=== PATIENT | male | born 1975 | race Caucasian/White ===

== ENCOUNTER 2016-06-12 08:49 | Emergency (ER) | payer SELFPAY ==
[2016-06-12] MEDS ORDERED: OXYCODONE-ACETAMINOPHEN 5-325 MG TABLET PO ONE (10:22)
[2016-06-12] MEDS ORDERED: ONDANSETRON 4 MG TAB.RAPDIS PO ONE (10:22)
[2016-06-12 10:49] LABS: ABSOLUTE BASOPHILS # (AUTO) 0.1 10^3/uL (0.0-0.2); ABSOLUTE EOSINOPHILS # (AUTO) 0.3 10^3/uL (0.0-0.6); ABSOLUTE LYMPHOCYTES (AUTO) 2.6 10^3/uL (0.5-4.7); ABSOLUTE MONOCYTES (AUTO) 0.6 10^3/uL (0.1-1.4); BASOPHILS % (AUTO) 0.6 % (0-2); HEMATOCRIT 46.3 % (37.9-51.0); HEMOGLOBIN 15.5 g/dL (13.5-17.0); HGB HCT DIFFERENCE 0.2; LYMPHOCYTES % (AUTO) 30.6 % (13-45); MEAN CORPUSCULAR HEMOGLOBIN 30.7 pg (27.0-33.4); MEAN CORPUSCULAR HGB CONC 33.6 g/dL (32.0-36.0); MEAN CORPUSCULAR VOLUME 92 fl (80-97); RED BLOOD COUNT 5.06 10^6/uL (4.35-5.55); RED CELL DISTRIBUTION WIDTH 12.9 % (11.5-14.0); SEGMENTED NEUTROPHILS % (AUTO) 58.8 % (42-78); WHITE BLOOD COUNT 8.4 10^3/uL (4.0-10.5)
[2016-06-12 11:09] LABS: ALANINE AMINOTRANSFERASE 50 U/L (21-72); ALBUMIN 4.8 g/dL (3.5-5.0); ALKALINE PHOSPHATASE 75 U/L (38-126); ANION GAP 10 (5-19); ASPARTATE AMINO TRANSFERASE 29 U/L (17-59); BILIRUBIN,TOTAL 0.6 mg/dL (0.2-1.3); BLOOD UREA NITROGEN 9 mg/dL (7-20); CALCIUM 9.9 mg/dL (8.4-10.2); CARBON DIOXIDE 30 mmol/L (22-30); CHLORIDE 103 mmol/L (98-107); CREATININE RESULT 1.01 mg/dL (0.52-1.25); GLUCOSE 89 mg/dL (75-110); POTASSIUM 4.7 mmol/L (3.6-5.0); SODIUM 143.1 mmol/L (137-145); TOTAL PROTEIN 7.7 g/dL (6.3-8.2)
--- NOTE | 2016-06-12 11:17 | ER Document Report ---
ED GI/ - General Chief Complaint: Possible Kidney Stone Stated Complaint: SIDE PAIN Notes: He shouldn't is a 40-year-old male presents emergency Department complaining of left flank pain. Patient states that it began he passed 2 kidney stones. Any states that Friday he started having left flank pain mostly in his lower back. Otherwise he denies any hematuria recently he had some over the weekend that since resolved. Otherwise denies any fevers or chills. Admits to nausea without vomiting. Last bowel movement was this morning and was normal. Denies any dysuria Otherwise no other significant past medical history. Past surgical history significant for cholecystectomy and appendectomy Social history: Occasional alcohol use. Denies any tobacco or drug use. Urologist is Dr. Leyva at [facility] TRAVEL OUTSIDE OF THE [place] IN LAST 30 DAYS: No - Related Data Allergies/Adverse Reactions: No Known Allergies Allergy (Verified 06/12/16 08:58) Past Medical History - General Information source: Patient - Social History Smoking Status: Never Smoker Chew tobacco use (# tins/day): No Frequency of alcohol use: Occasional Drug Abuse: None Family History: Reviewed & Not Pertinent Patient has suicidal ideation: No Patient has homicidal ideation: No - Past Medical History Cardiac Medical History: Reports: Hx Hypertension Neurological Medical History: Reports: Hx Cerebrovascular Accident Renal/ Medical History: Reports: Hx Kidney Stones - present and history of. Denies: Hx Peritoneal Dialysis GI Medical History: Denies: Hx Diverticulitis, Hx Gastritis, Hx Irritable Bowel Psychiatric Medical History: Reports: Hx Depression - recent seperation from spouse Past Surgical History: Reports: Hx Appendectomy, Hx Cholecystectomy - Immunizations Hx Diphtheria, Pertussis, Tetanus Vaccination: No Review of Systems - Review of Systems Constitutional: No symptoms reported EENT: No symptoms reported Cardiovascular: No symptoms reported Respiratory: No symptoms reported Gastrointestinal: No symptoms reported Genitourinary: See HPI Male Genitourinary: No symptoms reported Musculoskeletal: No symptoms reported Skin: No symptoms reported Hematologic/Lymphatic: No symptoms reported Neurological/Psychological: No symptoms reported Physical Exam - Vital signs Vitals: Temp Pulse Resp BP Pulse Ox 97.7 F 62 20 172/105 H 97 06/12/16 08:57 06/12/16 08:57 06/12/16 08:57 06/12/16 08:57 06/12/16 08:57 - Notes Notes: PHYSICAL EXAM GENERAL: Alert, interacts well. LUNGS: Clear to auscultation bilaterally, no wheezes, rales, or rhonchi. No respiratory distress. HEART: Regular rate and rhythm. No murmurs, gallops, or rubs. ABDOMEN: Soft, nondistended, nontender. No guarding, rebound, or rigidity.. Bowel sounds present in all 4 quadrants. BACK: Left CVA tenderness. EXTREMITIES: Moves all 4 extremities spontaneously. No edema, radial and dorsalis pedis pulses 2/4 bilaterally. No cyanosis. NEUROLOGICAL: Alert and oriented x3. Normal speech. PSYCH: Normal affect, normal mood. SKIN: Warm, dry, normal turgor. No rashes or lesions noted. Course - Re-evaluation Re-evalutation: 06/12/16 11:15 Patient is a 32-year-old male who is hemodynamically stable, no acute distress and afebrile. CBC within normal limits no evidence of leukocytosis. CMP does not reveal any acute renal failure. Urinalysis does not reveal any hematuria or UTI. CT limited for renal stone did not reveal any current stones. Patient is otherwise doing well. Discussed the symptoms of the CT scan and encouraged him to follow up with urology as scheduled. - Vital Signs Vital signs: Temp Pulse Resp BP Pulse Ox 97.7 F 62 20 172/105 H 97 06/12/16 08:57 06/12/16 08:57 06/12/16 08:57 06/12/16 08:57 06/12/16 08:57 - Laboratory Result Diagrams: 06/12/16 10:25 06/12/16 10:25 Laboratory results interpreted by me: 06/12/16 10:25 Urine Ascorbic Acid 40 H - Diagnostic Test Radiology reviewed: Image reviewed, Reports reviewed Discharge - Discharge Clinical Impression: Flank pain Condition: Good Disposition: HOME, SELF-CARE Instructions: Kidney Stone ([facility]) Additional Instructions: Follow-up with Dr. Cedrick Leyva at [place] is indicated in the next 6 months. Prescriptions: Hydrocodone/Acetaminophen [[place] 5-325 mg Tablet] 1 tab PO Q6HP PRN #10 tablet PRN Reason: Forms: Return to Work Referrals: MANDO ANTHONY MD [Primary Care Provider] - Follow up as needed
[2016-06-12 11:37] LABS: APPEARANCE,URINE CLEAR; BILIRUBIN,URINE NEGATIVE (NEGATIVE); GLUCOSE, URINE NEGATIVE (NEGATIVE); KETONES,URINE NEGATIVE (NEGATIVE); LEUKOCYTE ESTERASE,URINE NEGATIVE (NEGATIVE); NITRITE,URINE NEGATIVE (NEGATIVE); PROTEIN,URINE NEGATIVE (NEGATIVE); URINE SPECIFIC GRAVITY 1.013; UROBILINOGEN,URINE NEGATIVE mg/dL (<2.0)
[2016-06-12] MEDS ORDERED: KETOROLAC TROMETHAMINE 60 MG/2 ML SDV IM ONE (11:44)
[2016-06-12] MEDS ORDERED: KETOROLAC TROMETHAMINE INJ/PF 30 MG/1 ML SDV IV ONE (11:48)
[2016-06-12 12:23] VITALS: BP 158/92
== END 2016-06-12 12:13 | disposition home or self-care (01) ==
LOC: ER 08:49
DX: R10.9 Unspecified abdominal pain (principal); M54.5 Low back pain; Z87.442 Personal history of urinary calculi; R11.0 Nausea; I10 Essential (primary) hypertension; Z86.73 Personal history of transient ischemic attack (TIA), and cerebral infarction without residual deficits; Z90.49 Acquired absence of other specified parts of digestive tract
CPT/HCPCS: 99284; 96374; 36415; 85025; 80053; 81001; 76380; S0119; J1885

== ENCOUNTER 2016-08-07 23:01 | Emergency (ER) | payer SELFPAY ==
[2016-08-08] MEDS ORDERED: ACETAMINOPHEN 325 MG TABLET PO ONE (00:16)
[2016-08-08] MEDS ORDERED: ONDANSETRON 4 MG TAB.RAPDIS PO ONE (00:17)
--- NOTE | 2016-08-08 00:19 | ER Document Report ---
ED Medical Screen (RME) - General Stated Complaint: FLU LIKE SYMPTOMS Time seen by provider: 00:15 Notes: 40 year old male that comes to the ED for chief complaint of body aches, chills , mild cough. Exposed to daughter who tested positive for influenza. Denies sore throat, nausea vomiting, abdominal pain, shortness of breath, he states right now he has a mild headache and body aches. No influenza vaccine. TRAVEL OUTSIDE OF THE [place] IN LAST 30 DAYS: No - Related Data Allergies/Adverse Reactions: No Known Allergies Allergy (Verified 08/08/16 00:15) Past Medical History - Past Medical History Cardiac Medical History: Reports: Hx Hypertension Neurological Medical History: Reports: Hx Cerebrovascular Accident Renal/ Medical History: Reports: Hx Kidney Stones - present and history of. Denies: Hx Peritoneal Dialysis GI Medical History: Denies: Hx Diverticulitis, Hx Gastritis, Hx Irritable Bowel Psychiatric Medical History: Reports: Hx Depression - recent seperation from spouse Past Surgical History: Reports: Hx Appendectomy, Hx Cholecystectomy - Immunizations Hx Diphtheria, Pertussis, Tetanus Vaccination: No Physical Exam - Vital signs Vitals: Temp Pulse Resp BP Pulse Ox 98.4 F 66 16 162/104 H 97 08/07/16 23:16 08/07/16 23:16 08/07/16 23:16 08/07/16 23:16 08/07/16 23:16 - Respiratory Respiratory status: No respiratory distress Breath sounds: Normal. No: Decreased air movement, Productive cough, Rales, Rhonchi, Stridor, Wheezing Course - Vital Signs Vital signs: Temp Pulse Resp BP Pulse Ox 98.4 F 66 16 162/104 H 97 08/07/16 23:16 08/07/16 23:16 08/07/16 23:16 08/07/16 23:16 08/07/16 23:16
--- NOTE | 2016-08-08 05:11 | ER Document Report ---
ED Flu Like - General Chief Complaint: Flu Symptoms Stated Complaint: FLU LIKE SYMPTOMS Time seen by provider: 05:05 Notes: 40 year old male that comes to the ED for chief complaint of body aches, chills , mild cough. Exposed to daughter who tested positive for influenza. Denies sore throat, nausea vomiting, abdominal pain, shortness of breath, he states right now he has a mild headache and body aches. No influenza vaccine. TRAVEL OUTSIDE OF THE [place] IN LAST 30 DAYS: No - Related Data Allergies/Adverse Reactions: No Known Allergies Allergy (Verified 08/08/16 00:15) Past Medical History - General Information source: Patient - Social History Smoking Status: Never Smoker Chew tobacco use (# tins/day): No Frequency of alcohol use: None Drug Abuse: None Lives with: Family Family History: Reviewed & Not Pertinent Patient has suicidal ideation: No Patient has homicidal ideation: No - Past Medical History Cardiac Medical History: Reports: Hx Hypertension Neurological Medical History: Reports: Hx Cerebrovascular Accident Renal/ Medical History: Reports: Hx Kidney Stones - present and history of. Denies: Hx Peritoneal Dialysis GI Medical History: Denies: Hx Diverticulitis, Hx Gastritis, Hx Irritable Bowel Psychiatric Medical History: Reports: Hx Depression - recent seperation from spouse Past Surgical History: Reports: Hx Appendectomy, Hx Cholecystectomy - Immunizations Hx Diphtheria, Pertussis, Tetanus Vaccination: No Review of Systems - Review of Systems Constitutional: See HPI EENT: No symptoms reported Cardiovascular: No symptoms reported Respiratory: No symptoms reported Gastrointestinal: No symptoms reported Genitourinary: No symptoms reported Male Genitourinary: No symptoms reported Musculoskeletal: No symptoms reported Skin: No symptoms reported Hematologic/Lymphatic: No symptoms reported Neurological/Psychological: See HPI Physical Exam - Vital signs Vitals: Temp Pulse Resp BP Pulse Ox 98.4 F 66 16 162/104 H 97 08/07/16 23:16 08/07/16 23:16 08/07/16 23:16 08/07/16 23:16 08/07/16 23:16 Interpretation: Normal - General General appearance: Appears well, Alert In distress: None - HEENT Head: Normocephalic, Atraumatic Eyes: Normal Conjunctiva: Normal Extraocular movements intact: Yes Eyelashes: Normal Pupils: PERRL Ears: Normal External canal: Normal Tympanic membrane: Normal Sinus: Normal Nasal: Normal Mouth/Lips: Normal Mucous membranes: Normal Pharynx: Normal Neck: Normal - Respiratory Respiratory status: No respiratory distress Chest status: Nontender. No: Tender Breath sounds: Normal. No: Decreased air movement, Nonproductive cough, Productive cough, Wheezing Chest palpation: Normal - Cardiovascular Rhythm: Regular. No: Tachycardia Heart sounds: Normal auscultation, S1 appreciated, S2 appreciated Murmur: No - Abdominal Inspection: Normal Distension: No distension Bowel sounds: Normal Tenderness: Nontender. No: Tender, Guarding Organomegaly: No organomegaly - Back Back: Normal, Nontender - Extremities General upper extremity: Normal inspection, Nontender, Normal color, Normal ROM , Normal temperature General lower extremity: Normal inspection, Nontender, Normal color, Normal ROM , Normal temperature, Normal weight bearing. No: Keyon's sign - Neurological Neuro grossly intact: Yes Cognition: Normal Orientation: AAOx4 [place] Coma Scale Eye Opening: Spontaneous [place] Coma Scale Verbal: Oriented [place] Coma Scale Motor: Obeys Commands K[place] Coma Scale Total: 15 Speech: Normal Motor strength normal: LUE, RUE, LLE, RLE Sensory: Normal - Psychological Associated symptoms: Normal affect, Normal mood - Skin Skin Temperature: Warm Skin Moisture: Dry Skin Color: Normal Course - Re-evaluation Re-evalutation: On reevaluation patient still complaining of some body aches and chills, states headache is practically completely resolved. Patient is well-appearing, unremarkable exam including lung auscultation, abdominal examination, ENT examination. No nuchal rigidity, no lymphadenopathy, alert and well-appearing. Influenza is negative. Patient patient's symptoms I do suspect this is viral in nature, patient was given naproxen, work-release note, instructions for care at home, follow-up instructions, return precautions were discussed. Patient states understanding and agreement. - Vital Signs Vital signs: Temp Pulse Resp BP Pulse Ox 98.3 F 60 18 163/107 H 97 08/08/16 05:16 08/08/16 05:16 08/08/16 05:16 08/08/16 05:16 08/08/16 05:16 Discharge - Discharge Clinical Impression: Body aches, Chills Condition: Stable Disposition: HOME, SELF-CARE Additional Instructions: Influenza test is negative. Physical exam and symptoms are most consistent with a viral syndrome. This will resolve with time. Rest, take ibuprofen or the prescribed naproxen, and plenty of fluids. Follow-up with primary care. Return to emergency department for any concerning or worsening symptoms. Prescriptions: Naproxen 500 mg PO BID #20 tablet Forms: Return to Work, Elevated Blood Pressure Referrals: MANDO ANTHONY MD [Primary Care Provider] - Follow up as needed
[2016-08-08 05:18] VITALS: BP 163/107
== END 2016-08-08 05:16 | disposition home or self-care (01) ==
LOC: ER 23:01
DX: R68.83 Chills (without fever) (principal); R51 Headache; R52 Pain, unspecified; R05 Cough; Z20.828 Contact with and (suspected) exposure to other viral communicable diseases; I10 Essential (primary) hypertension; Z86.73 Personal history of transient ischemic attack (TIA), and cerebral infarction without residual deficits
CPT/HCPCS: 99283; 87804; S0119

== ENCOUNTER 2016-09-05 14:16 | Emergency (ER) | payer SELFPAY ==
[2016-09-05] MEDS ORDERED: ONDANSETRON 4 MG TAB.RAPDIS PO ONE (15:23)
[2016-09-05] MEDS ORDERED: OXYCODONE-ACETAMINOPHEN 5-325 MG TABLET PO ONE (15:23)
--- NOTE | 2016-09-05 15:24 | ER Document Report ---
ED Medical Screen (RME) - General Chief Complaint: Headache Stated Complaint: HEADACHE/CHEST PAIN/NUMBNESS IN LIPS Notes: This 41-year-old male patient comes emergency room complaining of severe headache. He reports he woke up about 2:30 AM with a headache all over. Sometime after that he had a nosebleed. He reports developing chest pain about 2:15 PM this afternoon. He also reports that the left lower lip feels numb. He takes lisinopril 20 mg daily for blood pressure. Brief exam shows him to be very tender to palpate the right posterior cervical and trapezius muscles. There is no pain or problems placing his chin on his chest. I have greeted and performed a rapid initial assessment of this patient. A comprehensive ED assessment and evaluation of the patient, analysis of test results and completion of the medical decision making process will be conducted by additional ED providers. TRAVEL OUTSIDE OF THE [place] IN LAST 30 DAYS: No - Related Data Allergies/Adverse Reactions: No Known Allergies Allergy (Verified 09/05/16 15:17) Past Medical History - Past Medical History Cardiac Medical History: Reports: Hx Hypertension Neurological Medical History: Reports: Hx Cerebrovascular Accident Renal/ Medical History: Reports: Hx Kidney Stones - present and history of. Denies: Hx Peritoneal Dialysis GI Medical History: Denies: Hx Diverticulitis, Hx Gastritis, Hx Irritable Bowel Psychiatric Medical History: Reports: Hx Depression - recent seperation from spouse Past Surgical History: Reports: Hx Appendectomy, Hx Cholecystectomy - Immunizations Hx Diphtheria, Pertussis, Tetanus Vaccination: No
[2016-09-05 16:04] LABS: ABSOLUTE EOSINOPHILS # (AUTO) 0.2 10^3/uL (0.0-0.6); ABSOLUTE LYMPHOCYTES (AUTO) 3.3 10^3/uL (0.5-4.7); ABSOLUTE MONOCYTES (AUTO) 0.7 10^3/uL (0.1-1.4); ABSOLUTE NEUT (AUTO) 6.8 10^3/uL (1.7-8.2); BASOPHILS % (AUTO) 0.4 % (0-2); EOSINOPHILS % (AUTO) 2.2 % (0-6); HEMATOCRIT 44.6 % (37.9-51.0); HEMOGLOBIN 15.5 g/dL (13.5-17.0); HGB HCT DIFFERENCE 1.9; LYMPHOCYTES % (AUTO) 29.7 % (13-45); MEAN CORPUSCULAR HEMOGLOBIN 31.1 pg (27.0-33.4); MEAN CORPUSCULAR HGB CONC 34.7 g/dL (32.0-36.0); MEAN CORPUSCULAR VOLUME 90 fl (80-97); MONOCYTES % (AUTO) 6.4 % (3-13); RED BLOOD COUNT 4.97 10^6/uL (4.35-5.55); RED CELL DISTRIBUTION WIDTH 13.3 % (11.5-14.0); SEGMENTED NEUTROPHILS % (AUTO) 61.3 % (42-78); WHITE BLOOD COUNT 11.1 10^3/uL (4.0-10.5)
[2016-09-05 16:09] LABS: PROTHROMBIN TIME 12.9 SEC (11.4-15.4)
[2016-09-05 16:34] LABS: ALANINE AMINOTRANSFERASE 62 U/L (21-72); ALBUMIN 4.8 g/dL (3.5-5.0); ALKALINE PHOSPHATASE 73 U/L (38-126); ANION GAP 13 (5-19); ASPARTATE AMINO TRANSFERASE 40 U/L (17-59); BILIRUBIN,DIRECT 0.4 mg/dL (0.0-0.4); BILIRUBIN,TOTAL 0.8 mg/dL (0.2-1.3); BLOOD UREA NITROGEN 15 mg/dL (7-20); CARBON DIOXIDE 30 mmol/L (22-30); CHLORIDE 102 mmol/L (98-107); CREATINE KINASE 269 U/L (55-170); CREATININE RESULT 1.08 mg/dL (0.52-1.25); GLUCOSE 114 mg/dL (75-110)
[2016-09-05] MEDS ORDERED: DIPHENHYDRAMINE HCL 50 MG/ML VIAL IV ONE (16:38)
[2016-09-05] MEDS ORDERED: LIDOCAINE 1% INJ-PF (10 MG/ML) 30 ML SDV ONE (16:41)
[2016-09-05 16:45] LABS: CREATINE KINASE MB 3.54 ng/mL (<4.55); TROPONIN I < 0.012 ng/mL
[2016-09-05] MEDS ORDERED: LABETALOL HCL INJ 20 MG/4 ML DISP.SYRIN IV ONE (17:11)
[2016-09-05] MEDS ORDERED: NICARDIPINE HCL RTU, ISO-OS 200 ML IV PRN (17:54)
[2016-09-05 18:27] LABS: GLUCOSE,CSF 62 mg/dL (40-70)
[2016-09-05 18:56] LABS: APPEARANCE ALL TUBES HAZY
[2016-09-05 18:57] LABS: RBC AVERAGE 696.5; RBC DILUENT USED NONE USED; RBC DILUTION FACTOR 1; RBC SIDE 1 698; RBC SIDE 2 695; TOTAL RBC SQUARES COUNTED 25
[2016-09-05 18:58] LABS: WHITE BLOOD CELL,CSF 23 /uL (0-5)
[2016-09-05 18:59] LABS: APPEARANCE ALL TUBES HAZY
[2016-09-05 19:00] LABS: RBC DILUENT USED NONE USED; RBC DILUTION FACTOR 1; RBC SIDE 1 318; RBC SIDE 2 320; TOTAL RBC SQUARES COUNTED 25
[2016-09-05 19:01] LABS: WHITE BLOOD CELL,CSF 10 /uL (0-5)
--- NOTE | 2016-09-05 19:32 | ER Document Report ---
ED General - General Chief Complaint: Headache Stated Complaint: HEADACHE/CHEST PAIN/NUMBNESS IN LIPS Time seen by provider: 15:25 Mode of Arrival: Ambulatory Information source: Patient Notes: This is a 41-year-old man with a history of hypertension (only medicine lisinopril 20 mg daily) who was awoken from sleep at 2:30 in the morning with a nosebleed and a severe headache. The patient states that the headache grew in severity and it was at its maximal severity at approximately 9:30 this morning ( 10 out of 10). Patient states that this is the worst headache of his life and his never had a headache like this before. He denies any fever, chills. He has had some nausea. Past medical history: Kidney stones Allergies: None TRAVEL OUTSIDE OF THE [place] IN LAST 30 DAYS: No - HPI Onset: Just prior to arrival Onset/Duration: Sudden Quality of pain: Dull Severity: Severe Pain Level: 5 Associated symptoms: denies: Chills, Fever, Shortness of breath Exacerbated by: Denies Relieved by: Denies Similar symptoms previously: No Recently seen / treated by doctor: No - Related Data Allergies/Adverse Reactions: morphine Allergy (Verified 09/05/16 17:27) Past Medical History - General Information source: Patient - Social History Smoking Status: Current Every Day Smoker Cigarette use (# per day): Yes - Pack per day Chew tobacco use (# tins/day): No Frequency of alcohol use: None Drug Abuse: None Lives with: Family Family History: Reviewed & Not Pertinent Patient has suicidal ideation: No Patient has homicidal ideation: No - Past Medical History Cardiac Medical History: Reports: Hx Hypertension Neurological Medical History: Reports: Hx Cerebrovascular Accident Renal/ Medical History: Reports: Hx Kidney Stones - present and history of. Denies: Hx Peritoneal Dialysis GI Medical History: Denies: Hx Diverticulitis, Hx Gastritis, Hx Irritable Bowel Psychiatric Medical History: Reports: Hx Depression - recent seperation from spouse Past Surgical History: Reports: Hx Appendectomy, Hx Cholecystectomy - Immunizations Hx Diphtheria, Pertussis, Tetanus Vaccination: No Review of Systems - Review of Systems Constitutional: denies: Chills, Fever EENT: No symptoms reported Cardiovascular: No symptoms reported Respiratory: No symptoms reported Gastrointestinal: No symptoms reported Genitourinary: No symptoms reported Male Genitourinary: No symptoms reported Musculoskeletal: No symptoms reported Skin: No symptoms reported Hematologic/Lymphatic: No symptoms reported Neurological/Psychological: See HPI Physical Exam - Vital signs Vitals: Resp Pulse Ox 23 H 95 09/05/16 16:15 09/05/16 16:15 Notes: Physical exam: GENERAL: 41-year-old man, alert and oriented 3, is complaining of worst headache of his life at this time. He appears uncomfortable. Patient is hypertensive at 192/112. HEAD: Atraumatic, normocephalic. EYES: Pupils equal round and reactive to light, extraocular movements intact, sclera anicteric, conjunctiva are normal. ENT: Moist mucous membranes. NECK: Normal range of motion, supple without lymphadenopathy or JVD. LUNGS: Breath sounds clear to auscultation bilaterally and equal. No wheezes rales or rhonchi. HEART: Regular rate and rhythm without murmurs, rubs or gallops. ABDOMEN: Soft, normoactive bowel sounds. No tenderness to palpation. No guarding, no rebound. No masses appreciated. EXTREMITIES: Normal range of motion, no pitting or edema. No clubbing or cyanosis. NEUROLOGICAL: Cranial nerves II through XII grossly intact. Motor 5 over 5, sensory grossly intact, finger to nose (cerebellar) good. Normal speech, gait not assessed. PSYCH: Normal mood, normal affect. SKIN: Warm, Dry, normal turgor, no rashes or lesions noted. Course - Re-evaluation Re-evalutation: 09/05/16 19:35 Due to the concerns for an intracranial bleed, the patient did have a spinal tap. Due to his body habitus and the need to get a good sample, he was sent down to fluoroscopy to have this done. I've spoken with Dr. Joshi of radiology who was concerned given the results of the test that appear to be positive for subarachnoid bleeding. Patient has had blood in all tubes by report. The patient was started on IV nicardipine. Current blood pressure is 155/97. The goal at this point is keep the systolic pressure below 160. The patient states that his headache is let up some. I've spoken with Dr Denis (neurosurgery) at [facility] who is willing to accept the patient for evaluation. 09/05/16 19:37 I have spoken with the patient and his about my concerns for subarachnoid hemorrhage. I let them know that we will be transferring him to [facility] to be assessed by a neurosurgeon for the possibility of this bleed (we do not have neurosurgery services here). - Vital Signs Vital signs: Temp Pulse Resp BP Pulse Ox 82 18 155/90 H 98 09/05/16 20:12 09/05/16 20:12 09/05/16 20:12 09/05/16 20:12 - Laboratory Result Diagrams: 09/05/16 15:54 09/05/16 15:54 Laboratory results interpreted by me: 09/05/16 09/05/16 09/05/16 15:54 15:54 17:25 WBC 11.1 H Glucose 114 H Creatine Kinase 269 H CSF WBC 23 H CSF RBC 6965 H CSF Total Protein 09/05/16 09/05/16 17:25 17:25 WBC Glucose Creatine Kinase CSF WBC 10 H CSF RBC 3190 H CSF Total Protein 81 H - Diagnostic Test Radiology reviewed: Image reviewed, Reports reviewed - CT of the head shows no evidence of bleed. Critical Care Note - Critical Care Note Total time excluding time spent on procedures (mins): 90 Discharge - Discharge Clinical Impression: hypertensive emergency, subarachnoid hemorrhage Condition: Serious Disposition: [facility] Referrals: MANDO ANTHONY MD [Primary Care Provider] - Follow up as needed
--- NOTE | 2016-09-05 20:08 | EKG REPORT ---
SEVERITY:- ABNORMAL ECG - SINUS RHYTHM NONSPECIFIC INTRAVENTRICULAR CONDUCTION DELAY : Confirmed by: Blanca Cesar MD 05-Sep-2016 20:06:06
[2016-09-05 20:13] VITALS: BP 155/90
== END 2016-09-05 20:19 | disposition short-term general hospital (02) ==
LOC: ER 14:16
PROC: 009U3ZX Drainage of Spinal Canal, Percutaneous Approach, Diagnostic (ICD-10-PCS; principal; 2016-09-05)
DX: I60.9 Nontraumatic subarachnoid hemorrhage, unspecified (principal); I16.1 Hypertensive emergency; I10 Essential (primary) hypertension; R51 Headache; R11.0 Nausea; F17.210 Nicotine dependence, cigarettes, uncomplicated; Z79.899 Other long term (current) drug therapy; Z88.5 Allergy status to narcotic agent; Z86.73 Personal history of transient ischemic attack (TIA), and cerebral infarction without residual deficits
CPT/HCPCS: 93005; 99291; 99292; 96375; 96365; 96366; 36415; 87070; 87205; 82553; 82550; 85025; 85610; 89050; 82945; 84157; 80053; 84484; 62270 ×2; 70450; 93010; J1200; S0119; J3490 ×2

== ENCOUNTER 2017-01-11 19:51 | Emergency (ER) | payer SELFPAY ==
[2017-01-11] MEDS ORDERED: ONDANSETRON 4 MG TAB.RAPDIS PO ONE (20:23)
[2017-01-11] MEDS ORDERED: ACETAMINOPHEN 325 MG TABLET PO ONE (20:23)
--- NOTE | 2017-01-11 20:25 | ER Document Report ---
ED Medical Screen (RME) - General Chief Complaint: Chest Pain Stated Complaint: CHEST PAIN,HEADACHE,NOSE BLEED Time Seen by Provider: 01/11/17 20:18 Notes: 41-year-old male, chief complaint of headache, epistaxis, and chest pain. Started having pressure in his chest this morning, this afternoon developed a bad headache followed by a nosebleed. He states he has had this several times in the past, same symptoms. He is medically needed for blood pressure only, is compliant with medications. He denies any injuries, focal numbness or weakness , difficulty breathing, vision changes. TRAVEL OUTSIDE OF THE [place] IN LAST 30 DAYS: No - Related Data Allergies/Adverse Reactions: morphine Allergy (Verified 01/11/17 20:01) Past Medical History - Past Medical History Cardiac Medical History: Reports: Hx Hypertension Neurological Medical History: Reports: Hx Cerebrovascular Accident Renal/ Medical History: Reports: Hx Kidney Stones - present and history of. Denies: Hx Peritoneal Dialysis GI Medical History: Denies: Hx Diverticulitis, Hx Gastritis, Hx Irritable Bowel Psychiatric Medical History: Reports: Hx Depression - recent seperation from spouse Past Surgical History: Reports: Hx Appendectomy, Hx Cholecystectomy - Immunizations Hx Diphtheria, Pertussis, Tetanus Vaccination: No Physical Exam - Vital signs Vitals: Temp Pulse Resp BP Pulse Ox 98.6 F 77 18 159/91 H 98 01/11/17 20:01 01/11/17 20:01 01/11/17 20:01 01/11/17 20:01 01/11/17 20:01 Course - Re-evaluation Re-evalutation: Had chest pain this morning, evaluating for this, currently has a headache, no current epistaxis, small amount of dried blood. Foregoing aspirin at this time because of headache at this time. No neurological deficits. Last time he states he had a lumbar puncture concerning for subarachnoid hemorrhage, was airlifted, states that after imaging they could not find anything wrong with him. - Vital Signs Vital signs: Temp Pulse Resp BP Pulse Ox 98.6 F 77 18 159/91 H 98 01/11/17 20:01 01/11/17 20:01 01/11/17 20:01 01/11/17 20:01 01/11/17 20:01
[2017-01-11 20:50] LABS: ABSOLUTE EOSINOPHILS # (AUTO) 0.2 10^3/uL (0.0-0.6); ABSOLUTE LYMPHOCYTES (AUTO) 3.6 10^3/uL (0.5-4.7); ABSOLUTE MONOCYTES (AUTO) 0.8 10^3/uL (0.1-1.4); ABSOLUTE NEUT (AUTO) 4.8 10^3/uL (1.7-8.2); BASOPHILS % (AUTO) 0.5 % (0-2); EOSINOPHILS % (AUTO) 2.2 % (0-6); HEMATOCRIT 46.9 % (37.9-51.0); HEMOGLOBIN 16.1 g/dL (13.5-17.0); HGB HCT DIFFERENCE 1.4; MEAN CORPUSCULAR HEMOGLOBIN 31.7 pg (27.0-33.4); MEAN CORPUSCULAR HGB CONC 34.3 g/dL (32.0-36.0); MEAN CORPUSCULAR VOLUME 93 fl (80-97); MONOCYTES % (AUTO) 8.2 % (3-13); RED BLOOD COUNT 5.06 10^6/uL (4.35-5.55); RED CELL DISTRIBUTION WIDTH 12.9 % (11.5-14.0); SEGMENTED NEUTROPHILS % (AUTO) 51.1 % (42-78); WHITE BLOOD COUNT 9.4 10^3/uL (4.0-10.5)
[2017-01-11 21:05] LABS: ALANINE AMINOTRANSFERASE 64 U/L (21-72); ALBUMIN 4.9 g/dL (3.5-5.0); ALKALINE PHOSPHATASE 85 U/L (38-126); ANION GAP 13 (5-19); ASPARTATE AMINO TRANSFERASE 40 U/L (17-59); BILIRUBIN,DIRECT 0.4 mg/dL (0.0-0.4); BILIRUBIN,TOTAL 1.2 mg/dL (0.2-1.3); BLOOD UREA NITROGEN 13 mg/dL (7-20); CALCIUM 10.1 mg/dL (8.4-10.2); CARBON DIOXIDE 26 mmol/L (22-30); CHLORIDE 104 mmol/L (98-107); CREATINE KINASE 335 U/L (55-170); CREATININE RESULT 1.11 mg/dL (0.52-1.25); GLUCOSE 98 mg/dL (75-110); POTASSIUM 4.2 mmol/L (3.6-5.0); SODIUM 143.3 mmol/L (137-145); TOTAL PROTEIN 8.1 g/dL (6.3-8.2)
--- NOTE | 2017-01-11 21:09 | EKG REPORT ---
SEVERITY:- ABNORMAL ECG - SINUS RHYTHM NONSPECIFIC INTRAVENTRICULAR CONDUCTION DELAY : Confirmed by: Candelaria Newberry 11-Jan-2017 21:08:09
[2017-01-11] MEDS ORDERED: NORMAL SALINE 1000 ML 1,000 ML IV ONE (21:16)
--- NOTE | 2017-01-11 21:16 | RADIOLOGY REPORT (SQ) ---
EXAM DESCRIPTION: CHEST SINGLE VIEW COMPLETED DATE/TIME: 01/11/2017 9:02 pm REASON FOR STUDY: chest pain COMPARISON: 02/19/2016. NUMBER OF VIEWS: One view. TECHNIQUE: Single frontal radiographic view of the chest acquired. LIMITATIONS: None. FINDINGS: LUNGS AND PLEURA: No opacities, masses or pneumothorax. No pleural effusion. MEDIASTINUM AND HILAR STRUCTURES: No masses. Contour normal. HEART AND VASCULAR STRUCTURES: Heart normal in size. Normal vasculature. BONES: No acute findings. HARDWARE: None in the chest. OTHER: No other significant finding. IMPRESSION: NO SIGNIFICANT RADIOGRAPHIC FINDING IN THE CHEST. TECHNICAL DOCUMENTATION: JOB ID: [id number] [employer] [facility] [employer]- All Rights Reserved
[2017-01-11 21:17] LABS: CREATINE KINASE MB 2.62 ng/mL (<4.55)
[2017-01-11 21:20] LABS: TROPONIN I < 0.012 ng/mL
--- NOTE | 2017-01-11 21:26 | ER Document Report ---
ED General - General Chief Complaint: Chest Pain Stated Complaint: CHEST PAIN,HEADACHE,NOSE BLEED Time Seen by Provider: 01/11/17 20:18 Notes: Patient is a 41-year-old male with past medical history of hypertension, obesity , who presents with an acute onset of a headache at approximately 7:30 PM. Describes it as a abrupt, stabbing, severe pain in the bilateral frontal aspect of his head. It is worsened by light. Nothing improves the pain. He has had a history of similar headache in the past which did result in an evaluation for a subarachnoid hemorrhage and this evaluation did not demonstrate any evidence of this pathology. States that he has been taking lisinopril for his blood pressure but feels that this often does not control his hypertension. He denies any focal weakness or numbness. He does describe his chest pressure has been having been there since this morning and as a dull, mild, constant pressure. No radiation of the pain. He denies any associated vomiting or diaphoresis. He did have a cardiac catheterization in February 2016 which was noted to did not demonstrate any evidence of coronary artery disease. TRAVEL OUTSIDE OF THE [place] IN LAST 30 DAYS: No - Related Data Allergies/Adverse Reactions: morphine Allergy (Verified 01/11/17 20:41) Past Medical History - General Information source: Patient - Social History Smoking Status: Never Smoker Frequency of alcohol use: None Drug Abuse: None Lives with: Family Family History: Reviewed & Not Pertinent Patient has suicidal ideation: No Patient has homicidal ideation: No - Past Medical History Cardiac Medical History: Reports: Hx Hypertension Neurological Medical History: Reports: Hx Cerebrovascular Accident Renal/ Medical History: Reports: Hx Kidney Stones - present and history of. Denies: Hx Peritoneal Dialysis GI Medical History: Denies: Hx Diverticulitis, Hx Gastritis, Hx Irritable Bowel Psychiatric Medical History: Reports: Hx Depression - recent seperation from spouse Past Surgical History: Reports: Hx Appendectomy, Hx Cholecystectomy - Immunizations Hx Diphtheria, Pertussis, Tetanus Vaccination: No Review of Systems - Review of Systems Notes: Constitutional: Negative for fever. HENT: Negative for sore throat. Eyes: Negative for visual changes. Cardiovascular: Positive for chest pain. Respiratory: Negative for shortness of breath. Gastrointestinal: Negative for abdominal pain, vomiting or diarrhea. Genitourinary: Negative for dysuria. Musculoskeletal: Negative for back pain. Skin: Negative for rash. Neurological: Positive for headache 10 point ROS negative except as marked above and in HPI. Physical Exam - Vital signs Vitals: Temp Pulse Resp BP Pulse Ox 98.6 F 77 18 159/91 H 98 01/11/17 20:01 01/11/17 20:01 01/11/17 20:01 01/11/17 20:01 01/11/17 20:01 Interpretation: Hypertensive Notes: PHYSICAL EXAMINATION: GENERAL: Well-appearing, well-nourished and in no acute distress. HEAD: Atraumatic, normocephalic. EYES: Pupils equal round and reactive to light, extraocular movements intact, sclera anicteric, conjunctiva are normal. ENT: nares patent, oropharynx clear without exudates. Moist mucous membranes. NECK: Normal range of motion, supple without lymphadenopathy LUNGS: Breath sounds clear to auscultation bilaterally and equal. No wheezes rales or rhonchi. HEART: Regular rate and rhythm without murmurs ABDOMEN: Soft, nontender, normoactive bowel sounds. No guarding, no rebound. No masses appreciated. EXTREMITIES: Normal range of motion, no pitting or edema. No cyanosis. NEUROLOGICAL: Face symmetric. Tongue protrudes midline. Extraocular motions intact. Pupils are 2 mm and equally reactive. Normal speech, normal gait. 5 out of 5 strength in both the distal and proximal upper and lower extremities bilaterally. Sensation is grossly intact throughout. Finger to nose testing normal. Pronator drift normal. PSYCH: Normal mood, normal affect. SKIN: Warm, Dry, normal turgor, no rashes or lesions noted. Course - Re-evaluation Re-evalutation: 01/11/17 21:18 Patient presents with an acute onset headache, 2 hours ago reaching maximal intensity within 20 minutes. Patient will go for stat CT of the head to evaluate for acute subarachnoid hemorrhage which she has been evaluated for the past and found to not have. Patient is also complaining of chest pain although this is an atypical presentation, EKG without ischemic changes, troponin negative. Low clinical suspicion for ACS given clinical history, exam, EKG without ST elevations or depressions, and negative initial troponin. HEART score less than or equal to 3. PE also seems unlikely given clinical history, absence of tachycardia or dyspnea. Patient is PERC criteria negative. CXR without evidence of pneumothorax or pneumonia. No widened mediastinum. Aortic dissection also seems unlikely given history, symmetric pulses, CXR, and vitals. I suspect that patient's headache is likely secondary to uncontrolled hypertension. Will start nitroglycerin patch given his chest pain as well as his headache and severe hypertension. Patient's laboratories also demonstrate mild dehydration with an elevated CK. Will provide IV fluids and a migraine cocktail. HEART Score: History:0 EC Age:0 Risk Factors:1 Troponin:0 Total: 0 01/11/17 22:12 CT head without any evidence of acute intracranial bleed. Will continue to reassess 01/11/17 22:34 Patient has had complete resolution of all of his symptoms at this time. He states he feels much improved. His blood pressure was also markedly improved. CT that was obtained within 6 hours is negative for acute intracranial bleed. Patient reports that his chest pressure has been present this morning making serial troponins not indicated. He also had a clean cardiac catheterization in February 2016. At this time will discharge with return precautions and follow- up recommendations. Verbal discharge instructions given a the bedside and opportunity for questions given. Medication warnings reviewed. Patient is in agreement with this plan and has verbalized understanding of return precautions and the need for primary care follow-up in the next 24-72 hours. - Vital Signs Vital signs: Temp Pulse Resp BP Pulse Ox 98.6 F 77 15 127/90 H 96 01/11/17 20:01 01/11/17 20:01 01/11/17 22:52 01/11/17 22:52 01/11/17 22:52 - Laboratory Result Diagrams: 01/11/17 20:36 01/11/17 20:36 Laboratory results interpreted by me: 01/11/17 20:36 Creatine Kinase 335 H - Diagnostic Test Radiology reviewed: Image reviewed, Reports reviewed Radiology results interpreted by me: 01/11/17 22:41 She is a good nurse chest x-ray: No acute infiltrate or wide mediastinum - EKG Interpretation by Me Additional EKG results interpreted by me: 01/11/17 22:41 Normal sinus rhythm. Rate 76. No ST elevations or depressions. QTC is 482. Discharge - Discharge Clinical Impression: Uncontrolled hypertension Chest pain Qualifiers: Chest pain type: unspecified Qualified Code(s): R07.9 - Chest pain, unspecified Headache Qualifiers: Headache type: unspecified Headache chronicity pattern: acute headache Intractability: not intractable Qualified Code(s): R51 - Headache Condition: Good Disposition: HOME, SELF-CARE Additional Instructions: You were seen today for chest pain. The exact cause of your pain is unclear. However, based on your cardiac enzyme testing, chest x-ray, and EKG it does not appear that it is from an immediately life-threatening cause at this time. Although your testing here is normal is critical that you follow-up with your primary care physician for continued evaluation of this chest pain and possible stress testing. I recommended you see your physician within the next 24-48 hours to be evaluated for consideration of a stress test. Please return to emergency department immediately if you have worsening of your chest pain, shortness of breath, vomiting, become unable to exert yourself due to pain or difficulty breathing, you pass out, or have any pain that radiates into your arms, jaw, or back. Please also return if you have any additional symptoms that are concerning to you. You have been seen in the Emergency Department (ED) for a headache. Please use Tylenol (acetaminophen) or Motrin (ibuprofen) as needed for symptoms, but only as written on the box. As we have discussed, please follow up with your primary care doctor as soon as possible regarding today's ED visit and your headache symptoms. Call your doctor or return to the ED if you have a worsening headache, sudden and severe headache, confusion, slurred speech, facial droop, weakness or numbness in any arm or leg, extreme fatigue, or other symptoms that concern you. Referrals: MANDO ANTHONY MD [Primary Care Provider] - Follow up as needed
[2017-01-11] MEDS ORDERED: NITROGLYCERIN 2% OINTMENT 1 GM PACKET TP ONE (21:27)
[2017-01-11] MEDS ORDERED: DIPHENHYDRAMINE HCL 50 MG/ML VIAL IV ONE (21:28)
[2017-01-11] MEDS ORDERED: PROCHLORPERAZINE EDISYLATE INJ 10 MG/2 ML VIAL IV ONE (21:28)
--- NOTE | 2017-01-11 21:48 | RADIOLOGY REPORT (SQ) ---
EXAM DESCRIPTION: CT HEAD WITHOUT COMPLETED DATE/TIME: 01/11/2017 9:38 pm REASON FOR STUDY: eval sah COMPARISON: 09/05/2016. TECHNIQUE: Axial images acquired through the brain without intravenous contrast. Images reviewed wi th bone, brain and subdural windows. Images stored on PACS. All CT scanners at this facility use dose modulation, iterative reconstruction, and/or weight based d osing when appropriate to reduce radiation dose to as low as reasonably achievable (ALARA). [facility]: Dose Right [facility]: CareDose [facility]: Dose Right [facility]: Teradose 4D [facility]: [employer] RADIATION DOSE: Up-to-date CT equipment and radiation dose reduction techniques were employed. CTDIv ol: 64.6 mGy. DLP: 1163 mGy-cm. mGy. LIMITATIONS: None. FINDINGS: VENTRICLES: Normal size and contour. CEREBRUM: No masses. No hemorrhage. No midline shift. No evidence for acute infarction. Normal gra y/white matter differentiation. No areas of low density in the white matter. CEREBELLUM: No masses. No hemorrhage. No alteration of density. No evidence for acute infarction. EXTRAAXIAL SPACES: No fluid collections. No masses. ORBITS AND GLOBE: No intra- or extraconal masses. Normal contour of globe without masses. CALVARIUM: No fracture. PARANASAL SINUSES: Mild chronic mucosal thickening. No fluid levels. SOFT TISSUES: No mass or hematoma. OTHER: No other significant finding. IMPRESSION: No acute intracranial abnormality. COMMENT: Quality ID # [id number]: Final reports with documentation of one or more dose reduction techniques (e.g., Automated exposure control, adjustment of the mA and/or kV according to patient size, use of iterative reconstruction technique) TECHNICAL DOCUMENTATION: JOB ID: [id number]- All Rights Reserved
[2017-01-11 23:16] VITALS: BP 127/90
== END 2017-01-11 23:16 | disposition home or self-care (01) ==
LOC: ER 19:51
DX: R07.9 Chest pain, unspecified (principal); R51 Headache; I10 Essential (primary) hypertension; R04.0 Epistaxis; E66.9 Obesity, unspecified
CPT/HCPCS: 93005; 99285; 96361; 96374; 96375; 36415; 82553; 82550; 85025; 80053; 84484; 71010; 70450; 93010; J1200; S0119; J0780; J7030

== ENCOUNTER 2017-02-25 19:55 | Emergency (ER) | payer OTHER ==
--- NOTE | 2017-02-25 22:45 | RADIOLOGY REPORT (SQ) ---
EXAM DESCRIPTION: L SPINE WHOLE COMPLETED DATE/TIME: 02/25/2017 10:25 pm REASON FOR STUDY: trauma COMPARISON: May 2016 CT NUMBER OF VIEWS: Five views including obliques. TECHNIQUE: AP, lateral, oblique, and sacral radiographic images acquired of the lumbar spine. LIMITATIONS: None. FINDINGS: MINERALIZATION: Normal. SEGMENTATION: Normal. No transitional anatomy. ALIGNMENT: Normal. VERTEBRAE: Maintained height in the lumbar spine. Mild compression of the T11 and T12 vertebral bodi es appear similar to the prior CT in May 2016. No fracture or worrisome bone lesion identified. DISCS: Multilevel disc space narrowing with osteophytes. POSTERIOR ELEMENTS: Pedicles and facets are intact. No pars defect or posterior arch defects. Facet arthropathy is present. HARDWARE: None in the spine. PARASPINAL SOFT TISSUES: Normal. PELVIS: Intact as visualized. No fractures or worrisome bone lesions. SI joints intact. OTHER: No other significant finding. IMPRESSION: Maintained height in the lumbar spine. Mild compression of the T11 and T12 vertebral aundrea dies appear similar to the prior CT in May 2016. TECHNICAL DOCUMENTATION: JOB ID: [id number]- All Rights Reserved
--- NOTE | 2017-02-25 22:48 | RADIOLOGY REPORT (SQ) ---
EXAM DESCRIPTION: CT CERVICAL SPINE WITHOUT COMPLETED DATE/TIME: 02/25/2017 10:28 pm REASON FOR STUDY: trauma COMPARISON: None. TECHNIQUE: Axial images acquired through the cervical spine without intravenous contrast. Images re viewed with lung, soft tissue and bone windows. Reconstructed coronal and sagittal MPR images review ed. Images stored on PACS. All CT scanners at this facility use dose modulation, iterative reconstruction, and/or weight based d osing when appropriate to reduce radiation dose to as low as reasonably achievable (ALARA). [facility]: Dose Right [facility]: CareDose [facility]: Dose Right [facility]: Teradose 4D [facility]: [employer] RADIATION DOSE: Up-to-date CT equipment and radiation dose reduction techniques were employed. CTDIv ol: 21.2 mGy. DLP: 463 mGy-cm. mGy. LIMITATIONS: None. FINDINGS: ALIGNMENT: Anatomic. MINERALIZATION: Normal. VERTEBRAL BODIES: No fractures or dislocation. DISCS: Minimal spondylotic changes. FACETS, LATERAL MASSES, POSTERIOR ELEMENTS: No fractures. No dislocation. No acute findings. HARDWARE: None in the spine. VISUALIZED RIBS: No fractures. LUNG APICES AND SOFT TISSUES: No significant or acute findings. OTHER: No other significant finding. IMPRESSION: NO ACUTE FINDINGS IN THE CERVICAL SPINE. TECHNICAL DOCUMENTATION: JOB ID: [id number] Quality ID # [id number]: Final reports with documentation of one or more dose reduction techniques (e.g., Au tomated exposure control, adjustment of the mA and/or kV according to patient size, use of iterative reconstruction technique) 2010 [email or web address]- All Rights Reserved
[2017-02-25] MEDS ORDERED: METAXALONE 800 MG TABLET PO ONE (22:54)
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
[2017-02-25 23:20] VITALS: BP 182/100
== END 2017-02-25 23:23 | disposition home or self-care (01) ==
LOC: ER 19:55
DX: S16.1XXA Strain of muscle, fascia and tendon at neck level, initial encounter (principal); S39.012A Strain of muscle, fascia and tendon of lower back, initial encounter; V89.2XXA Person injured in unspecified motor-vehicle accident, traffic, initial encounter; I10 Essential (primary) hypertension; Z88.6 Allergy status to analgesic agent
CPT/HCPCS: 72110; 72125; 99284

== ENCOUNTER 2017-06-24 11:41 | Emergency (ER) | payer OTHER ==
[2017-06-24] MEDS ORDERED: KETOROLAC TROMETHAMINE INJ/PF 30 MG/1 ML SDV IV ONE (12:17)
[2017-06-24] MEDS ORDERED: NORMAL SALINE 1000 ML 1,000 ML IV ONE (12:17)
--- NOTE | 2017-06-24 12:20 | ER Document Report ---
ED Medical Screen (RME) - General Chief Complaint: Flank Pain Stated Complaint: FLANK PAIN Time Seen by Provider: 06/24/17 12:16 Mode of Arrival: Ambulatory Information source: Patient TRAVEL OUTSIDE OF THE [place] IN LAST 30 DAYS: No - HPI Patient complains to provider of: flank pain Onset: Just prior to arrival - pt with h/o kidney stones with flank pain starting earlier this am - Related Data Allergies/Adverse Reactions: morphine Allergy (Verified 06/24/17 11:44) Past Medical History - Social History Chew tobacco use (# tins/day): No Frequency of alcohol use: None Drug Abuse: None - Past Medical History Cardiac Medical History: Reports: Hx Hypertension Neurological Medical History: Reports: Hx Cerebrovascular Accident Renal/ Medical History: Reports: Hx Kidney Stones - present and history of. Denies: Hx Peritoneal Dialysis GI Medical History: Denies: Hx Diverticulitis, Hx Gastritis, Hx Irritable Bowel Psychiatric Medical History: Reports: Hx Depression - recent seperation from spouse Past Surgical History: Reports: Hx Appendectomy, Hx Cholecystectomy - Immunizations Hx Diphtheria, Pertussis, Tetanus Vaccination: No Physical Exam - Vital signs Vitals: Temp Pulse Resp BP Pulse Ox 99.1 F 54 L 14 146/92 H 100 06/24/17 11:49 06/24/17 11:49 06/24/17 11:49 06/24/17 11:49 06/24/17 11:49 Course - Vital Signs Vital signs: Temp Pulse Resp BP Pulse Ox 99.1 F 54 L 14 146/92 H 100 06/24/17 11:49 06/24/17 11:49 06/24/17 11:49 06/24/17 11:49 06/24/17 11:49
[2017-06-24 12:37] LABS: APPEARANCE,URINE CLEAR; BILIRUBIN,URINE NEGATIVE (NEGATIVE); COLOR,URINE YELLOW; GLUCOSE, URINE NEGATIVE (NEGATIVE); KETONES,URINE NEGATIVE (NEGATIVE); LEUKOCYTE ESTERASE,URINE NEGATIVE (NEGATIVE); NITRITE,URINE NEGATIVE (NEGATIVE); PROTEIN,URINE NEGATIVE (NEGATIVE); URINE SPECIFIC GRAVITY 1.011; UROBILINOGEN,URINE NEGATIVE mg/dL (<2.0)
[2017-06-24 13:01] LABS: ABSOLUTE EOSINOPHILS # (AUTO) 0.2 10^3/uL (0.0-0.6); ABSOLUTE LYMPHOCYTES (AUTO) 3.3 10^3/uL (0.5-4.7); ABSOLUTE MONOCYTES (AUTO) 0.6 10^3/uL (0.1-1.4); ABSOLUTE NEUT (AUTO) 5.2 10^3/uL (1.7-8.2); BASOPHILS % (AUTO) 0.4 % (0-2); EOSINOPHILS % (AUTO) 2.6 % (0-6); HEMATOCRIT 44.8 % (37.9-51.0); HEMOGLOBIN 15.7 g/dL (13.5-17.0); LYMPHOCYTES % (AUTO) 35.4 % (13-45); MEAN CORPUSCULAR HEMOGLOBIN 31.8 pg (27.0-33.4); MEAN CORPUSCULAR VOLUME 91 fl (80-97); MONOCYTES % (AUTO) 6.3 % (3-13); PLATELET COUNT 346 10^3/uL (150-450); RED BLOOD COUNT 4.94 10^6/uL (4.35-5.55); RED CELL DISTRIBUTION WIDTH 13.2 % (11.5-14.0); SEGMENTED NEUTROPHILS % (AUTO) 55.3 % (42-78); TOTAL CELLS COUNTED % (AUTO) 100 %; WHITE BLOOD COUNT 9.5 10^3/uL (4.0-10.5)
--- NOTE | 2017-06-24 13:12 | RADIOLOGY REPORT (SQ) ---
EXAM DESCRIPTION: CT LTD RENAL STONE PROTOCOL ON COMPLETED DATE/TIME: 06/24/2017 12:48 pm REASON FOR STUDY: flank pain COMPARISON: None. TECHNIQUE: CT scan of the abdomen and pelvis performed without intravenous or oral contrast. Images reviewed with lung, soft tissue, and bone windows. Reconstructed coronal and sagittal MPR images revi ewed. All images stored on PACS. All CT scanners at this facility use dose modulation, iterative reconstruction, and/or weight based d osing when appropriate to reduce radiation dose to as low as reasonably achievable (ALARA). [facility]: Dose Right [facility]: CareDose [facility]: Dose Right [facility]: Teradose 4D [facility]: Smart Webtab RADIATION DOSE: CT Rad equipment meets quality standard of care and radiation dose reduction techniq ues were employed. CTDIvol: 17.3 mGy. DLP: 1002 mGy-cm.mGy. LIMITATIONS: None. FINDINGS: LOWER CHEST: No significant findings. No nodules or infiltrates. NON-CONTRASTED LIVER, SPLEEN, ADRENALS: Evaluation limited by lack of IV contrast. No identified sign ificant masses. PANCREAS: No masses. No peripancreatic inflammatory changes. GALLBLADDER: Surgically absent. RIGHT KIDNEY AND URETER: No suspicious masses. Assessment limited by lack of IV contrast. No signif icant calcifications. No hydronephrosis or hydroureter. LEFT KIDNEY AND URETER: No suspicious masses. Assessment limited by lack of IV contrast. No signifi cant calcifications. No hydronephrosis or hydroureter. AORTA AND RETROPERITONEUM: No aneurysm. No retroperitoneal masses or adenopathy. BOWEL AND PERITONEAL CAVITY: No obvious masses or inflammatory changes. No free fluid. APPENDIX: Surgically absent. PELVIS, BLADDER, AND ABDOMINAL WALL:No abnormal masses. No free fluid. Bladder normal. BONES: No significant findings. OTHER: No other significant finding. IMPRESSION: NO SIGNIFICANT OR ACUTE PROCESS IN THE ABDOMEN OR PELVIS. No pathology to explain the h istory of flank pain. COMMENT: Quality ID # [id number]: Final reports with documentation of one or more dose reduction techniques (e.g., Automated exposure control, adjustment of the mA and/or kV according to patient size, use of iterative reconstruction technique) TECHNICAL DOCUMENTATION: JOB ID: [id number] All Rights Reserved
[2017-06-24 13:25] LABS: ALANINE AMINOTRANSFERASE 51 U/L (21-72); ALBUMIN 4.9 g/dL (3.5-5.0); ALKALINE PHOSPHATASE 67 U/L (38-126); ANION GAP 10 (5-19); ASPARTATE AMINO TRANSFERASE 28 U/L (17-59); BILIRUBIN,DIRECT 0.5 mg/dL (0.0-0.4); BILIRUBIN,TOTAL 0.5 mg/dL (0.2-1.3); BLOOD UREA NITROGEN 12 mg/dL (7-20); CALCIUM 10.2 mg/dL (8.4-10.2); CARBON DIOXIDE 29 mmol/L (22-30); CHLORIDE 103 mmol/L (98-107); GLUCOSE 91 mg/dL (75-110); POTASSIUM 4.4 mmol/L (3.6-5.0); SODIUM 142.4 mmol/L (137-145); TOTAL PROTEIN 8.1 g/dL (6.3-8.2)
--- NOTE | 2017-06-24 14:12 | ER Document Report ---
HPI - HPI Patient complains to provider of: Flank pain Onset: Other - 3 days Onset/Duration: Persistent Quality of pain: Achy Pain Level: 4 Context: Patient presents with 3 day history of left flank pain that wraps around his lateral side. Patient does complain of some nausea. Patient denies any fever or urinary symptoms. Patient has a history kidney stones and suspects the same today. Associated Symptoms: Other - Left flank pain. denies: Nonproductive cough, Productive cough, Fever Exacerbated by: Denies Relieved by: Denies Similar symptoms previously: Yes Recently seen / treated by doctor: No - ROS ROS below otherwise negative: Yes Systems Reviewed and Negative: Yes All other systems reviewed and negative - CONSTITUTIONAL Constitutional: DENIES: Fever, Chills - EENT EENT: DENIES: Sore Throat - NEURO Neurology: DENIES: Headache - CARDIOVASCULAR Cardiovascular: DENIES: Chest pain - RESPIRATORY Respiratory: DENIES: Trouble Breathing, Coughing - GASTROINTESTINAL Gastrointestinal: REPORTS: Abdominal Pain. DENIES: Nausea, Patient vomiting - URINARY Urinary: DENIES: Dysuria, Urgency, Frequency - MUSCULOSKELETAL Musculoskeletal: REPORTS: Back Pain - DERM Skin Color: Normal Skin Problems: None Past Medical History - General Information source: Patient - Social History Smoking Status: Never Smoker Chew tobacco use (# tins/day): No Frequency of alcohol use: None Drug Abuse: None Occupation: Maintenance Lives with: Family Family History: Reviewed & Not Pertinent Patient has suicidal ideation: No Patient has homicidal ideation: No - Past Medical History Cardiac Medical History: Reports: Hx Hypertension Neurological Medical History: Reports: Hx Cerebrovascular Accident Renal/ Medical History: Reports: Hx Kidney Stones - present and history of. Denies: Hx Peritoneal Dialysis GI Medical History: Denies: Hx Diverticulitis, Hx Gastritis, Hx Irritable Bowel Psychiatric Medical History: Reports: Hx Depression - recent seperation from spouse Past Surgical History: Reports: Hx Appendectomy, Hx Cholecystectomy - Immunizations Hx Diphtheria, Pertussis, Tetanus Vaccination: No Vertical Provider Document - CONSTITUTIONAL Agree With Documented VS: Yes Exam Limitations: No Limitations General Appearance: WD/WN, No Apparent Distress - INFECTION CONTROL TRAVEL OUTSIDE OF THE [place] IN LAST 30 DAYS: No - HEENT HEENT: Atraumatic, Normocephalic - NECK Neck: Normal Inspection, Supple - RESPIRATORY Respiratory: Breath Sounds Normal, No Respiratory Distress, Chest Non-Tender O2 Sat by Pulse Oximetry: 100 - CARDIOVASCULAR Cardiovascular: Regular Rate, Regular Rhythm, No Murmur - GI/ABDOMEN Gastrointestinal: Abdomen Soft, Abdomen Tender, No Organomegaly, Normal Bowel Sounds. negative: Abdominal Guarding - Left lateral side tenderness - BACK Back: Abnormal Inspection - Left lateral side tenderness, CVA Tenderness-Left - MUSCULOSKELETAL/EXTREMETIES Musculoskeletal/Extremeties: MAEW, FROM, Non-Tender - NEURO Level of Consciousness: Awake, Alert, Appropriate Motor/Sensory: No Motor Deficit - DERM Integumentary: Warm, Dry, No Rash Course - Re-evaluation Re-evalutation: 06/24/17 14:16 Patient's abdomen soft, no guarding. Patient does have left flank and lateral side tenderness. Will treat for musculoskeletal pain at this time. CT without any concerning findings for kidney stone, obstruction, or pyelo-nephritis. Will treat symptomatically. The patient has been informed that they may have pre-hypertension or hypertension based on a blood pressure reading in the emergency department. I recommend that patient call the primary care provider listed on their discharge instructions or a physician of their choice by this week to arrange follow-up for further evaluation of possible pre-hypertension or hypertension. Controlled substance database reviewed - Vital Signs Vital signs: Temp Pulse Resp BP Pulse Ox 99.1 F 54 L 14 146/92 H 100 06/24/17 11:49 06/24/17 11:49 06/24/17 11:49 06/24/17 11:49 06/24/17 11:49 - Laboratory Result Diagrams: 06/24/17 12:30 06/24/17 12:30 Laboratory results interpreted by me: 06/24/17 06/24/17 12:20 12:30 Direct Bilirubin 0.5 H Urine Ascorbic Acid 40 H 06/24/17 14:15 Labs- Entire Visit 06/24/17 06/24/17 06/24/17 12:20 12:30 12:30 WBC 9.5 RBC 4.94 Hgb 15.7 Hct 44.8 MCV 91 MCH 31.8 MCHC 35.0 RDW 13.2 Plt Count 346 Seg Neutrophils % 55.3 Lymphocytes % 35.4 Monocytes % 6.3 Eosinophils % 2.6 Basophils % 0.4 Absolute Neutrophils 5.2 Absolute Lymphocytes 3.3 Absolute Monocytes 0.6 Absolute Eosinophils 0.2 Absolute Basophils 0.0 Sodium 142.4 Potassium 4.4 Chloride 103 Carbon Dioxide 29 Anion Gap 10 BUN 12 Creatinine 1.00 Est GFR ( Amer) > 60 Est GFR (Non-Af Amer) > 60 Glucose 91 Calcium 10.2 Total Bilirubin 0.5 Direct Bilirubin 0.5 H Neonat Total Bilirubin Not Reportable Neonat Direct Bilirubin Not Reportable Neonat Indirect Bili Not Reportable AST 28 ALT 51 Alkaline Phosphatase 67 Total Protein 8.1 Albumin 4.9 Urine Color YELLOW Urine Appearance CLEAR Urine pH 5.0 Ur Specific [place] 1.011 Urine Protein NEGATIVE Urine Glucose (UA) NEGATIVE Urine Ketones NEGATIVE Urine Blood NEGATIVE Urine Nitrite NEGATIVE Urine Bilirubin NEGATIVE Urine Urobilinogen NEGATIVE Ur Leukocyte Esterase NEGATIVE Urine WBC (Auto) 0 Urine RBC (Auto) 0 Urine Mucus (Auto) RARE Urine Ascorbic Acid 40 H - Diagnostic Test Radiology reviewed: Reports reviewed Discharge - Discharge Clinical Impression: Hx of essential hypertension, Flank pain Condition: Stable Disposition: HOME, SELF-CARE Instructions: Abdominal Pain ([facility]), Flank Pain ([facility]), Oral Narcotic Medication ([facility]) Additional Instructions: Return immediately for any new or worsening symptoms Followup with your primary care provider, call tomorrow to make a followup appointment Prescriptions: Oxycodone HCl/Acetaminophen [Percocet 5-325 mg Tablet] 1 tab PO ASDIR PRN #12 tablet PRN Reason: Forms: Elevated Blood Pressure, Return to Work Referrals: MANDO ANTHONY MD [Primary Care Provider] - Follow up tomorrow
[2017-06-24 14:43] VITALS: BP 156/105
== END 2017-06-24 14:43 | disposition home or self-care (01) ==
LOC: ER 11:41
DX: R10.9 Unspecified abdominal pain (principal); R11.0 Nausea; M54.9 Dorsalgia, unspecified; I10 Essential (primary) hypertension; Z87.442 Personal history of urinary calculi; Z90.49 Acquired absence of other specified parts of digestive tract
CPT/HCPCS: 99284; 36415; 85025; 80053; 81001; 76380; J1885; J7030

== ENCOUNTER 2017-09-09 09:14 | Emergency (ER) | payer OTHER ==
--- NOTE | 2017-09-09 10:22 | ER Document Report ---
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 pt notes pain with range of motion TRAVEL OUTSIDE OF THE [place] IN LAST 30 DAYS: No - HPI Onset: Yesterday Onset/Duration: Sudden Quality of pain: Pressure Severity: Mild Pain Level: 1 Associated symptoms: Body/muscle aches Exacerbated by: Movement Relieved by: Denies Similar symptoms previously: No Recently seen / treated by doctor: No - Related Data Allergies/Adverse Reactions: acetaminophen [From Percocet] Allergy (Verified 09/09/17 09:15) morphine Allergy (Verified 06/24/17 11:44) oxycodone [From Percocet] Allergy (Verified 09/09/17 09:15) Past Medical History - Social History Smoking Status: Never Smoker Cigarette use (# per day): No Chew tobacco use (# tins/day): No Smoking Education Provided: No Drug Abuse: None Family History: Reviewed & Not Pertinent Patient has suicidal ideation: No Patient has homicidal ideation: No - Past Medical History Cardiac Medical History: Reports: Hx Hypertension Neurological Medical History: Reports: Hx Cerebrovascular Accident Renal/ Medical History: Reports: Hx Kidney Stones - present and history of. Denies: Hx Peritoneal Dialysis GI Medical History: Denies: Hx Diverticulitis, Hx Gastritis, Hx Irritable Bowel Psychiatric Medical History: Reports: Hx Depression - recent seperation from spouse Past Surgical History: Reports: Hx Appendectomy, Hx Cholecystectomy - Immunizations Hx Diphtheria, Pertussis, Tetanus Vaccination: No Review of Systems - Review of Systems Notes: REVIEW OF SYSTEMS: CONSTITUTIONAL : Denies fever, chills, or sweats. Denies recent illness. EENT: Denies eye, ear, throat, or mouth pain or symptoms. Denies nasal or sinus congestion or discharge. Denies throat, tongue, or mouth swelling or difficulty swallowing. CARDIOVASCULAR: Denies chest pain. Denies palpitations or racing or irregular heart beat. Denies ankle edema. RESPIRATORY: Denies cough, cold, or chest congestion. Denies shortness of breath, difficulty breathing, or wheezing. GASTROINTESTINAL: Denies abdominal pain or distention. Denies nausea, vomiting , or diarrhea. Denies blood in vomitus, stools, or per rectum. Denies black, tarry stools. Denies constipation. GENITOURINARY: Denies difficulty urinating, painful urination, burning, frequency, blood in urine, or discharge. MUSCULOSKELETAL: pain with range of motion SKIN: Denies rash, lesions or sores. HEMATOLOGIC : Denies easy bruising or bleeding. LYMPHATIC: Denies swollen, enlarged glands. NEUROLOGICAL: Denies confusion or altered mental status. Denies passing out or loss of consciousness. Denies dizziness or lightheadedness. Denies headache. Denies weakness or paralysis or loss of use of either side. Denies problems with gait or speech. Denies sensory loss, numbness, or tingling. Denies seizures. PSYCHIATRIC: Denies anxiety or stress. Denies depression, suicidal ideation, or homicidal ideation. ALL OTHER SYSTEMS REVIEWED AND NEGATIVE. Dictation was performed using [employer] voice recognition software PHYSICAL EXAMINATION: GENERAL: Well-appearing, well-nourished and in no acute distress. HEAD: Atraumatic, normocephalic. EYES: Pupils equal round and reactive to light, extraocular movements intact, sclera anicteric, conjunctiva are normal. ENT: Nares patent, oropharynx clear without exudates. Moist mucous membranes. NECK: Normal range of motion, supple without lymphadenopathy LUNGS: Breath sounds clear to auscultation bilaterally and equal. No wheezes rales or rhonchi. HEART: Regular rate and rhythm without murmurs ABDOMEN: Soft, nontender, nondistended abdomen. No guarding, no rebound. No masses appreciated. Musculoskeletal: limited rom with pain at the left elbow , no deformity NEUROLOGICAL: Cranial nerves grossly intact. Normal speech, normal gait. mild weakness at the hand PSYCH: Normal mood, normal affect. SKIN: Warm, Dry, normal turgor, no rashes or lesions noted. Physical Exam - Vital signs Vitals: Temp Pulse Resp BP Pulse Ox 97.9 F 69 16 155/89 H 98 09/09/17 09:27 09/09/17 09:27 09/09/17 09:27 09/09/17 09:27 09/09/17 09:27 Course - Re-evaluation Re-evalutation: 09/09/17 10:23 pt has probable crush injury causing pressure on the nerves, otherwise he looks well, xray pending 09/09/17 10:48 X-ray noted no acute fracture, patient will be given follow-up with orthopedics otherwise well-appearing will be given pain control After performing a Medical Screening Examination, I estimate there is LOW risk for INTRACRANIAL HEMORRHAGE, UNSTABLE SPINE FRACTURE, CENTRAL CORD SYNDROME, CAUDA EQUINA, THORACIC AORTIC DISSECTION, PNEUMOTHORAX, PERFORATED BOWEL, RUPTURED ABDOMINAL AORTIC ANEURYSM, ACUTE TENDON RUPTURE, COMPARTMENT SYNDROME, or OPEN FRACTURE, thus I consider the discharge disposition reasonable. Also, there is no evidence or peritonitis, sepsis, or toxicity. I have reevaluated this patient multiple times and no significant life threatening changes are noted. The patient and I have discussed the diagnosis and risks, and we agree with discharging home to follow-up with their primary doctor with the understanding that symptoms and presentations can change. We also discussed returning to the Emergency Department immediately if new or worsening symptoms occur. We have discussed the symptoms which are most concerning (e.g., bloody stool, fever, changing or worsening pain, vomiting) that necessitate immediate return. - Vital Signs Vital signs: Temp Pulse Resp BP Pulse Ox 97.9 F 69 16 155/89 H 98 09/09/17 09:27 09/09/17 09:27 09/09/17 09:27 09/09/17 09:27 09/09/17 09:27 - Diagnostic Test Radiology reviewed: Image reviewed - X-ray 2 view of the elbow notes no acute abnormality, Reports reviewed Discharge - Discharge Clinical Impression: nerve impingement Elbow, crushing injury Qualifiers: Encounter type: initial encounter Laterality: left Qualified Code(s): S57.02XA - Crushing injury of left elbow, initial encounter Condition: Stable Disposition: HOME, SELF-CARE Instructions: Neuralgia ([facility]) Prescriptions: Tramadol HCl 50 mg PO Q8 #10 tablet Referrals: MANDO ANTHONY MD [Primary Care Provider] - Follow up as needed ANUJ GAMBOA DO [ACTIVE STAFF] - Follow up tomorrow
--- NOTE | 2017-09-09 10:42 | RADIOLOGY REPORT (SQ) ---
EXAM DESCRIPTION: ELBOW LEFT AP/LATERAL COMPLETED DATE/TIME: 09/09/2017 10:24 am REASON FOR STUDY: crush injury yesterday, limited bending COMPARISON: None. NUMBER OF VIEWS: Four views. TECHNIQUE: AP, lateral, and both oblique radiographic images acquired of the left elbow. LIMITATIONS: None. FINDINGS: MINERALIZATION: Normal. BONES: No acute fracture or dislocation. No worrisome bone lesions. JOINT: No effusion. SOFT TISSUES: No soft tissue swelling. No foreign body. OTHER: No other significant finding. IMPRESSION: NEGATIVE STUDY OF THE LEFT ELBOW. NO RADIOGRAPHIC EVIDENCE OF ACUTE INJURY. TECHNICAL DOCUMENTATION: JOB ID: [id number] Contractually- All Rights Reserved Reading location - IP/workstation name: [email or web address]
[2017-09-09 10:52] VITALS: BP 153/72
== END 2017-09-09 11:01 | disposition home or self-care (01) ==
LOC: ER 09:14
DX: S57.02XA Crushing injury of left elbow, initial encounter (principal); X58.XXXA Exposure to other specified factors, initial encounter; Y93.89 Activity, other specified; Y99.0 Civilian activity done for income or pay; I10 Essential (primary) hypertension; Z86.73 Personal history of transient ischemic attack (TIA), and cerebral infarction without residual deficits; Z88.6 Allergy status to analgesic agent; Z87.442 Personal history of urinary calculi; Z90.49 Acquired absence of other specified parts of digestive tract
CPT/HCPCS: 99283